=== PATIENT | female | born 1940 | race Caucasian/White ===

== ENCOUNTER 2025-04-02 12:15 | Emergency (ER) | payer MEDICARE, BC, SELFPAY ==
[2025-04-02 12:18] VITALS: BP 159/85
--- NOTE | 2025-04-02 13:51 | ED.SKININJ ---
HPI-Injury
General
Chief Complaint: Skin Surface Trauma
Source: patient and family
Exam Limitations: none
Time Seen by Provider: 04/02/25 13:13
Nursing documentation reviewed up to this point in time: agreed with
History of Present Illness-Injury
Is this injury a work related problem?: No
Is pt an associate of [facility]?: No
Initial Injury comments:
84-year-old female scratch to the dorsum of her right hand just prior to arrival by her own dog she does not believe she was bitten she has a small healing scratch to her left index fingerJust finished some antibiotics she does not believe her
tetanus is up-to-date her dog is up-to-date on his shots, she does take a blood thinner for DVTNo fevers no drainage
Past History
Past History
ED Past Medical History: Other (dvt)
Social History
Tobacco: Non-smoker
Alcohol: None
Drug: None
Living: with family
Employment: Retired
Review of Systems
Review of Systems
All Other Systems: Not applicable
Constitutional: Denies fever or chills
Respiratory: Reports no symptoms
Cardiac: Reports no symptoms
ABD/GI: Reports no symptoms
Musculoskeletal: Denies joint pain
Endocrine: Reports no symptoms
Hematologic/Lymphatic: Reports no symptoms
Phy Exam
Physical Exam
Physical Exam:
Physical Exam
General: no apparent distress, not acutely ill
Lungs: no acute respiratory distress.
Neuro: alert and oriented. no focal neurological deficits
Skin: no rash
Psychiatric: well kept. interactive and cooperative
Extremities: Right index finger healing wound without infectious symptoms the distal index finger, left hand on the dorsum 1.5 cm flap abrasion/partial-thickness laceration no bony tenderness no fluctuance no crepitance no
infection
Course
Orders/Labs/Results
Orders:
Orders
04/02/25 13:37
Tetanus/Diphth/Acelpertussis [Adacel] 0.5 ml IM .ONCE ONE
04/02/25 13:38
Amoxicillin 500 mg/Clav 125 mg [Augmentin 500 mg/125 mg] 1 tablet PO NOW STA
Vital Signs
Initial and Last Documented VS:
Initial Vital Signs
Temp Pulse Resp BP Pulse Ox
98 F 76 16 159/85 95
04/02/25 12:18 04/02/25 12:18 04/02/25 12:18 04/02/25 12:18 04/02/25 12:18
Last Documented Vital Signs
Temp Pulse Resp BP Pulse Ox
98 F 76 16 159/85 95
04/02/25 12:18 04/02/25 12:18 04/02/25 12:18 04/02/25 12:18 04/02/25 12:18
MDM/Problems Addressed
Differential Diagnosis Includes:
Wound from a scratch not a bite
MDM/Problems Addressed:
Dog bite dog scratch laceration doubt fracture or foreign body
*Critical Care Note
Total Time (30-74mins, 75-104mins- exclusive of procedures): Not Applicable
Update Note
Update Note:
Options reviewed with patient we will update her tetanus, will irrigate the wound closed loosely with some Steri-Strips give a few days of Augmentin in case that this could be a bite and not a scratch
ED Attending Note
-
Portions of this chart may have been created with voice recognition software.� Occasional wrong word or��sound alike� substitutions may have occurred due to the inherent limitations of voice recognition software.
Discharge Plan
Departure
Patient Disposition: Home (Routine Discharge)
Date of Disposition: 04/02/25
Time of Disposition: 13:54
Patient with high blood pressure during this ER visit?: No
Condition: Good
Covid-19: Not Applicable
Discharge Problem:
Hand laceration
Instructions: Wound Care (DC)
Prescriptions:
New
amoxicillin-pot clavulanate [Augmentin] 500-125 mg tablet
1 tab PO BID Qty: 5 0RF
Activity Restrictions/Additional Instructions:
Keep wound covered for few days, then you can wash with soap and water and use antibiotic ointment
Return to the ER if any signs of infection
Interventions
Interventions:
*Risk Screen - Suicide Last Done: 04/02/25 12:19
*Neglect/Abuse Screening Last Done: 04/02/25 12:19
Discharge Date and Time
Print Language: GERMAN
[2025-04-02] MEDS: ADACEL 0.5 ML IM (14:24)
[2025-04-02] MEDS: AUGMENTIN 500 MG/125 MG 1 TABLET PO (14:24)
== END 2025-04-02 14:37 | disposition home or self-care (01) ==
LOC: EMR 12:15
PROVIDERS: EMERGENCY PHYSICIAN Emergency Medicine
DX: S61.411A Laceration without foreign body of right hand, initial encounter (principal); W54.0XXA Bitten by dog, initial encounter; Z23 Encounter for immunization; Z86.718 Personal history of other venous thrombosis and embolism
CPT/HCPCS: 99282; 90471; 90715